=== PATIENT | female | born 1960 | race Two or more races ===

== ENCOUNTER 2016-09-01 06:58 | Observation (INO) ==
[2016-09-01 07:59] LABS: Basophils % 0.2 % (0.0-0.8); Hematocrit 40.4 VOL% (35.7-47.0); Hemoglobin 13.6 GM/DL (12.0-16.0); Immature Granulocytes % 0.2 %; Immature Granulocytes Absolute 0.02 #; Lymphocytes # 0.6 10*3/uL (1.4-4.0); Lymphocytes % 7.2 % (21.3-54.2); Mean Corpuscular HGB Conc 33.7 GM/DL (32-36); Mean Corpuscular Hemoglobin 29 PG (27-34); Mean Corpuscular Volume 86.5 FL (87-102); Mean Platelet Volume 10.3 FL (9.6-12.0); Monocytes # 0.2 10*3/uL (0.11-0.8); Monocytes % 2.7 % (1.7-12.7); Neutrophils # 7.7 10*3/uL (1.4-7.4); Neutrophils % 89.7 % (38.7-73.9); Platelet Count 198 10*3/uL (130-400); Red Blood Count 4.67 10*6/uL (3.8-5.5); Red Cell Distribution Width 12.2 % (9.3-17.3); White Blood Count 8.6 10*3/uL (4.5-13.71)
[2016-09-01 08:27] LABS: Lactic Acid 1.2 MMOL/L (0.4-2.0)
[2016-09-01 08:28] LABS: Albumin 4.3 G/DL (3.4-5.0); Bilirubin,Total 0.6 MG/DL (0.2-1.0); Calcium 8.9 MG/DL (8.5-10.1); Potassium 3.7 MMOL/L (3.5-5.1); Total Protein 7.7 G/DL (6.4-8.3)
--- NOTE | 2016-09-01 08:45 | XRay Report ---
XR chest 2V Indication: Febrile illness. Chest 2 views: Heart size and mediastinal contour are normal. There is diffuse mild parabronchial thickening present. No focal infiltrates are shown. Pleural spaces are clear. Bones are intact. Impression: Mild airways disease such as bronchitis or viral syndrome. No focal pneumonia. PROCEDURE INTERPRETED AT [facility] DEPARTMENT OF RADIOLOGY Final Report Signed by: Jr Rausch M.D.
[2016-09-01] MEDS ORDERED: ONDANSETRON 4 MG/2 ML VIAL IV STA (09:42)
[2016-09-01] MEDS ORDERED: HYDROmorphone 2 MG/1 ML VIAL IV STA (09:42)
[2016-09-01] MEDS ORDERED: HYDROmorphone 2 MG/1 ML VIAL ONE ×2 (09:44→15:08)
[2016-09-01] MEDS ORDERED: ONDANSETRON 4 MG/2 ML VIAL ONE (09:44)
--- NOTE | 2016-09-01 09:48 | Ultrasound Report ---
US gallbladder Indication: Right upper quadrant abdominal pain. ULTRASOUND ABDOMEN, limited Comparison: 12/19/2014 Findings: Liver: Unremarkable Gallbladder: Unremarkable. No stones, sludge or sonographic Logan's sign. Common bile duct: 6 mm Pancreas: Unremarkable Right kidney: 10.4 cm length. No mass, cyst, calcification or obstruction Impression: Negative ultrasound. PROCEDURE INTERPRETED AT [facility] DEPARTMENT OF RADIOLOGY Final Report Signed by: Jr Rausch M.D.
--- NOTE | 2016-09-01 11:00 | CT Report ---
CT abdomen pelvis w con Indication: Right lower quadrant abdominal pain. CT ABDOMEN AND PELVIS WITH CONTRAST DLP: 462 mGy*cm Comparison: Ultrasound obtained earlier today Technique: Axial CT images of the abdomen and pelvis were obtained with IV contrast; Omnipaque 350, 100 cc. Oral contrast was not administered. Abdomen: Borderline enlarged heart size. Coarsened interstitial markings of the lung bases primarily atelectasis. No infiltrates. Liver, gallbladder, spleen, pancreas, adrenal glands and left kidney are unremarkable. Hypodensity right kidney is present, likely a cyst, 22 mm diameter. No bowel obstruction. Pelvis: The appendix is enlarged, edematous, with adjacent fat stranding. No bowel obstruction. No evidence of perforation. Subcentimeter right lower quadrant mesenteric nodes noted. Urinary bladder, rectosigmoid colon, uterus and adnexal structures are unremarkable. Impression: Acute appendicitis. Right renal cyst. PROCEDURE INTERPRETED AT [facility] DEPARTMENT OF RADIOLOGY Final Report Signed by: Jr Rausch M.D.
[2016-09-01] MEDS ORDERED: AMPICILLIN/SULBACTAM 3,000 MG in SODIUM CHLORIDE 0.9% 100 ML IV STA (11:21)
[2016-09-01] MEDS ORDERED: AMPICILLIN/SULBACTAM 3,000 MG VIAL ONE (11:23)
--- NOTE | 2016-09-01 11:23 | Emergency Department Note ---
Curt Morse Jamie, am scribing for, and in the presence of, Diaz Leroy MD 07:32. Rad Morse Doug C, MD, personally performed the services described in this documentation, ascribed by Tra Elias in my presence, and it is both accurate and complete 836 . Arrival - Arrival Chief Complaint: Abdominal / Flank Pain Stated Complaint: food poisoning (stomach pain ) ED Nursing Triage Note: C/O ABDOMINAL PAIN WITH VOMITING. ONSET INGA 1900 LAST EVENING. PT STATES IT STARTED AFTER EATING CORNB[place] FROM THE [place] Mode of Arrival: Ambulatory Limitations: No Limitations Source: Patient, RN Notes Reviewed Time Seen by Provider: 09/01/16 07:30 - History of Present Illness HPI Narrative: Patient comes in today complaining of abdominal pain that started about 12 hours ago. Patient states the pain is in the epigastrium and seems to radiate into her right lower abdomen. She has had nausea vomiting with it and loss of appetite. Patient states she is not having any fever chills associated with this. She denies any urinary symptoms and states she has not had any bowel habit changes. Patient states she did have a similar episode one time before when she was on vacation the pain was brief and subsided spontaneously and she has not been trouble with it again until last night. She has not had any previous surgeries except eye surgery. Onset (ago): day(s) (1) Consistency: constant Severity: moderate Allergies/Adverse Reactions: Allergies Allergy/AdvReac Type Severity Reaction Status Date / Time No Known Allergies Allergy Unverified 12/07/14 15:58 Home Medications: Home Medications Medication Instructions Recorded Confirmed Type Solifenacin Succinate [Vesicare] 10 mg PO QAM 09/01/16 09/01/16 History Review of System - Review of System 12 point system: reviewed and no additional remarkable complaints except as stated - Review of System Constitutional: Absent: chills, diaphoresis, fever, weakness Eyes: Absent: vision change Respiratory: Absent: cough, respiratory distress Cardiovascular: Absent: chest pain Gastrointestinal: Present: abdominal pain, nausea, vomiting. Absent: diarrhea, constipation Musculoskeletal: Absent: joint swelling Skin: Absent: rash, change in color Neurological: Absent: headache, weakness, numbness, confusion Hematological/Lymphatic: Absent: easy bleeding, easy bruising Medical,Surgical,& Family Hx - Medical History Medical History: noncontributory Neurology: No history of: Seizures - Surgical History HEENT Surgeries: Surgical HX of: Eye Surgery - Family History Family History: Reports;: Family Diabetes, Family Heart Disease - Social History Smoking Status: Never smoker Frequency of Alcohol Use: None Type of Drug Use: None Exam Vital Signs: Vital Signs Temperature 97.5 F L 09/01/16 07:08 Pulse Rate 78 09/01/16 11:15 Respiratory Rate 16 09/01/16 11:15 Blood Pressure 123/64 09/01/16 11:15 O2 Sat by Pulse Oximetry 100 09/01/16 11:15 - General General appearance: alert, in no apparent distress - Head Head exam: Present: atraumatic, normocephalic, normal inspection - Eye Eye exam: Present: normal appearance, PERRL, EOMI - ENT ENT exam: Present: normal exam, normal oropharynx, mucous membranes moist - Neck Neck exam: Present: normal inspection, full ROM - Chest Chest inspection: Present: normal inspection, symmetric chest wall rise - Respiratory Respiratory exam: Present: normal lung sounds bilaterally - Cardiovascular Cardiovascular exam: Present: regular rate, normal rhythm, normal heart sounds - Abdominal Exam Abdominal exam: Present: soft, tenderness (Right upper and lower quadrant), normal bowel sounds. Absent: guarding, rebound - Extremities Exam Extremities exam: Present: normal inspection, full ROM - Neurological Exam Neurological exam: Present: alert, oriented X3, CN II-XII intact. Absent: motor sensory deficit - Psychiatric Psychiatric exam: Present: normal affect, normal mood - Skin Skin exam: Present: warm, dry, intact, normal color Course Course Narrative: Patient's clinical presentation, laboratory and radiographic findings were discussed with Dr. Jayden Bowman. He will see the patient emergency room and evaluate for surgical intervention. Results - Labs CBC & BMP: 09/01/16 07:41 09/01/16 07:41 Lab Results: I have reviewed the patients labs Labs: Laboratory Tests 09/01/16 09/01/16 07:41 07:41 MCV 86.5 L Neut % (Auto) 89.7 H Lymph % (Auto) 7.2 L Neut # (Auto) 7.7 H Lymph # (Auto) 0.6 L BUN/Creatinine Ratio 23.00 H Glucose 123 H ALT 67 H - Diagnostic Findings Procedure: Chest x-ray: report reviewed by me (Mild airways disease such as bronchitis or viral syndrome. No focal pneumonia.), CT Abdomen and Pelvis: report reviewed by me (Acute appendicitis) Disposition Case discussed with: patient Disposition: Still a Patient Condition: Stable Time of Disposition: 11:23
--- NOTE | 2016-09-01 12:17 | General Surg History&Physical ---
Assessment and Plan (1) Acute appendicitis Status: Acute Assessment and plan: The patient has acute CT proven appendicitis. I discussed medical management with the patient and I'll also discuss surgical options. She has already been on antibiotics for urinary tract infection for the past 2 weeks. She would like to proceed with operative intervention. I recommended a laparoscopic appendectomy to the patient. We did discuss the option of antibiotics and about 75% success rate but she would rather have the surgery. I think this is velez especially because she has already been on antibiotics for urinary tract infection. This occurred while she was on antibiotics. I discussed the risks, benefits, and alternatives of the operation with the patient, and the expected outcomes have been reviewed. The patient would like to proceed with the operation and we will do this now. She said the last time she ate or drank anything was last night and she promptly had vomiting afterwards and hasn't had anything since then. Current Visit: Yes History of Present Illness Chief complaint: abdominal pain History of present illness: Ms. Rainey is a 56 year old female with history of hyperlipidemia presenting to the ER for abdominal pain since yesterday. The pain begain in the mid- spigastrium and has radiated to the right lower quadrant. She had a left shift on her CBC and also had acute nonperforated appendicitis on her CT scan. Been treated for UTI over the past 2 weeks. She says she's had episodes of pain that been similar in the past. She has no prior abdominal surgical history. Home Medications Medication Instructions Recorded Confirmed Type Solifenacin Succinate [Vesicare] 10 mg PO QAM 09/01/16 09/01/16 History Allergies Allergy/AdvReac Type Severity Reaction Status Date / Time No Known Allergies Allergy Unverified 12/07/14 15:58 Medical,Surgical,& Family Hx - Medical History Neurology: No history of: Seizures - Surgical History HEENT Surgeries: Surgical HX of: Eye Surgery - Family History Family History: Reports;: Family Diabetes, Family Heart Disease - Social History Smoking Status: Never smoker Frequency of Alcohol Use: None Type of Drug Use: None Exam - Constitutional Vitals: Period Temp Pulse Resp BP Sys/Tolliver Pulse Ox Last 24 Hr 97.5 F 70-95 16-18 115-165/57-98 96-100 General appearance: normal weight, no acute distress - Head Head exam: Present: normal inspection, normocephalic - Eye Eye exam: Present: EOMI. Absent: scleral icterus Pupils: Present: SHAI - ENT ENT exam: Present: normal exam Mouth exam: Present: normal external inspection, normal voice - Neck Neck exam: Present: normal inspection, trachea midline - Respiratory Respiratory exam: Present: clear to auscultation bilaterally. Absent: accessory muscle use, chest wall tenderness - Cardiovascular Cardiovascular exam: Present: RRR. Absent: systolic murmur, tachycardia - GI/Abdominal GI/Abdominal exam: Present: normal bowel sounds, tenderness (right lower quadrant tenderness without diffuse peritonitis), soft. Absent: distended - Extremities Exam Extremities exam: Present: normal inspection - Back Exam Back exam: Present: normal inspection - Neurological Exam Neurological exam: Present: alert, oriented X3 Speech: Present: normal - Skin Skin exam: Present: normal color, warm - Constitutional Constitutional: Present: as per HPI - EENT Nose, mouth and throat: Present: as per HPI - Cardiovascular Cardiovascular: Present: as per HPI - Respiratory Respiratory: Present: as per HPI - Gastrointestinal Gastrointestinal: Present: as per HPI - Genitourinary Genitourinary: Present: as per HPI - Musculoskeletal Musculoskeletal: Present: as per HPI - Neurological Neurological: Present: as per HPI - Endocrine Endocrine: Present: as per HPI Hematologic/Lymphatic: Present: as per HPI Results - Labs CBC & BMP: 09/01/16 07:41 09/01/16 07:41 - Diagnostic Findings Procedure: CT Abdomen and Pelvis: image reviewed by me, report reviewed by me
[2016-09-01] MEDS ORDERED: FAMOTIDINE 20 MG TABLET PO ONE (12:32)
[2016-09-01] MEDS ORDERED: BUPIVACAINE MPF 0.25% /EPI 30 ML VIAL ONE (12:54)
[2016-09-01] MEDS ORDERED: TISSUE ADHESIVE 1 EACH APPLICATOR TOP ONE (12:54)
[2016-09-01] MEDS ORDERED: LIDOCAINE 1%/EPI INJ 20 ML VIAL ONE (12:54)
[2016-09-01] MEDS ORDERED: ONDANSETRON 4 MG/2 ML VIAL IV PRN ×2 (13:46→16:01)
[2016-09-01] MEDS ORDERED: HYDROmorphone 2 MG/1 ML VIAL IV PRN ×2 (13:46→16:01)
[2016-09-01] MEDS: LACTATED RINGERS 1,000 ML IV SCH ×2 (13:50→18:30)
--- NOTE | 2016-09-01 14:55 | Operative Note ---
Date of procedure: 09/01/16 Pre-op diagnosis: acute appendicitis Post-op diagnosis: same Procedure: Preoperative diagnosis Acute appendicitis Postoperative diagnosis Same Procedures performed Laparoscopic appendectomy Findings Acute nonperforated appendicitis Complications None apparent Specimen Appendix Blood loss 5 mL Anesthesia GETA Indications Acute appendicitis CT proven Description of procedure The patient was taken to the operating room and transferred to the operating table in the supine position. Pressure points were padded and SCDs placed on bilateral lower extremities. General endotracheal anesthesia was administered. The abdomen was prepped with chlorhexidine and draped sterilely after Amin catheter was placed with clear urine output. Timeout was called. Preoperative antibiotics were administered. The abdomen was entered in the paramedian location in the right supraumbilical location with a Veress needle. A 12 mm skin incision was made after local anesthetic was administered in this location and penetrating towel clips were used to grasp the abdominal wall skin. The Veress needle was used to enter the peritoneal cavity confirmed by double click technique. Aspiration was negative. Saline drop test confirmed intraperitoneal location. The abdomen was insufflated to 15 mmHg with an initial insufflation pressure of 2 mmHg. The Veress needle was removed and a 12 mm trocar was placed. Laparoscope was inserted and diagnostic laparoscopy was performed. There was no evidence of air is needle or trocar injury. There was inflammation in the right lower quadrant but there is no pus or evidence of perforation. There was focal peritonitis in this location. Under direct visualization, and after local anesthetic was administered, a suprapubic 5 mm trocar and a left lower quadrant 5 mm trocar placed after local anesthetic was administered. The appendix was then visualized once the small bowel was swept out of the pelvis. It was acutely inflamed and injected with erythema but there is no perforation. The appendix was grasped and the appendiceal mesentery was dissected until a window was made in the appendiceal mesentery. The stapler was then used to transect the base of the appendix. The ELINOR stapler was used. The appendiceal mesentery was then divided with a ELINOR stapler using a vascular load. There was some bleeding from the staple line at the appendiceal artery controlled with spot electrocautery. The appendix was placed in a retrieval bag and removed through the 12 mm trocar. There was no further bleeding from the staple line. The trochars were removed after the CO2 was released from the abdomen. The skin incisions were closed with 4-0 Monocryl sterile skin glue. The patient was awakened from anesthesia after Amin catheter was removed and transferred recovery. Postoperative plan Discharge home tomorrow stop antibiotics Anesthesia: MARITZA, local Surgeon / Physician: Jayden Bowman Estimated blood loss: minimal Specimens: other (appendix) Condition: stable Disposition: PACU Results - Labs CBC & BMP: 09/01/16 07:41 09/01/16 07:41 Discharge Plan - Discharge Data Disposition: Disch To Home/Self Care Condition at Discharge: Stable Discharge Diet: advance to your usual diet Activity: no lifting Hygiene: may shower Weight Bearing at Discharge: weight bear as tolerated Driving: not for (24 hours and after off of narcotic pain medications) Wound / Dressing Care Instructions: It is okay to shower. Do not submerge incisions under water. - Discharge Medications New HYDROcodone/ACETAMIN 7.5-325 [[place] 7.5-325] 1 tablet PO Q4H PRN #30 tablet PRN Reason: Pain Continue Solifenacin Succinate [Vesicare] 10 mg PO QAM - Follow Up or Referral Follow Up: Jayden Bowman MD [Physician] - 2 Weeks - Forms/Instructions
--- NOTE | 2016-09-01 15:06 | Anesthesia ---
Anesthesia Post OP - Post Ansesthetic Evaluation Patient seen in post op: Yes Resp: within normal limits CV: within normal limits Mental: within normal limits Temp: within normal limits [id number]: within normal limits Nausea and Vomiting: within normal limits Pain: within normal limits
[2016-09-01] MEDS ORDERED: MIDAZOLAM 2 MG/2 ML VIAL ONE (15:08)
[2016-09-01] MEDS ORDERED: fentaNYL 100 MCG/2 ML VIAL ONE (15:08)
[2016-09-01] MEDS ORDERED: SEVOFLURANE 1 UNIT/15 MINUTE INH ONE (15:08)
[2016-09-01] MEDS ORDERED: PROMETHAZINE 25 MG/1 ML VIAL IM PRN (16:01)
[2016-09-01] MEDS: KETOROLAC 10 MG TABLET PO SCH ×2 (18:58→21:46)
[2016-09-02] MEDS: KETOROLAC 10 MG TABLET PO SCH ×2 (03:00→09:26)
[2016-09-02] MEDS: LACTATED RINGERS 1,000 ML IV SCH ×3 (03:02→09:09)
[2016-09-02] MEDS ORDERED: ENOXAPARIN 40 MG/0.4 ML SYRINGE SUBCUT SCH (08:51)
[2016-09-02] MEDS ORDERED: SOLIFENACIN 5 MG TABLET PO SCH (09:00)
--- NOTE | 2016-09-02 10:09 | Discharge Summary ---
Hospital Course - Hospital Course Hospital Course: 56-year-old female admitted by Dr. Bowman on 09/01/2016 with acute nonperforated appendicitis. She was taken to the operating room for a laparoscopic appendectomy. She is doing great postoperatively. She is up ambulating and she is tolerating a diet without problems. She will be discharged home with a 1 week follow-up with Dr. Bowman. Discharge instructions were given. - Time spent with patient Time with patient DS: Less than 30 minutes Specialty Discharge - Follow Up or Referrals Follow up with: Jayden Bowman MD [Physician] - 2 Weeks Discharge Plan - Discharge Data Disposition: Disch To Home/Self Care Condition at Discharge: Stable Discharge Diet: advance to your usual diet Activity: increase activity as tolerated, no lifting Hygiene: may shower Driving: other (no driving if taking pain pills) Contact your physician if you experience:: fever over 101, Nausea/Vomiting Wound / Dressing Care Instructions: ok to shower daily w mild soap and water, pat dry. ok to leave open to the air or cover prn w bandaids. - Discharge Medications New HYDROcodone/ACETAMIN 7.5-325 [[place] 7.5-325] 1 tablet PO Q4H PRN #30 tablet PRN Reason: Pain HYDROcodone/ACETAMIN 7.5-325 [[place] 7.5-325] 1 tablet PO Q4H PRN #30 tablet PRN Reason: Pain Moderate (4-7) Continue Solifenacin Succinate [Vesicare] 10 mg PO QAM - Follow Up or Referral Follow Up: Jayden Bowman MD [Physician] - 2 Weeks - Forms/Instructions Exam - Constitutional Vitals: Period Temp Pulse Resp BP Sys/Tolliver Pulse Ox Last 24 Hr 97.6 F-98.9 F 60-76 16-20 95-124/45-67 95-100 DS: Provider Date of admission: 09/01/16 12:14 Primary care physician: . No PCP Attending physician on admission: Jayden Bowman MD Consults: 09/01/16 16:10 Consult to Pharmacy [CONS] Routine Reason for Pharmacy Consult: Adjust Meds Renal Funct Discharging clinician: REBECCA Benitez Expected date of discharge: 09/02/16
[2016-09-02 13:12] VITALS: BP 124/72
[2016-09-02] MEDS ORDERED: ROCURONIUM 100 MG/10 ML VIAL IV ONE (13:49)
[2016-09-02] MEDS ORDERED: ONDANSETRON 4 MG/2 ML VIAL ONE (13:49)
[2016-09-02] MEDS ORDERED: KETOROLAC 30 MG/1 ML VIAL ONE (13:49)
[2016-09-02] MEDS ORDERED: DEXAMETHASONE 10 MG/1 ML VIAL ONE (13:49)
[2016-09-02] MEDS ORDERED: LIDOCAINE 2% 5 ML VIAL ONE (13:49)
[2016-09-02] MEDS ORDERED: PROPOFOL 200 MG/20 ML VIAL IV ONE (13:49)
--- NOTE | 2016-09-03 11:43 | Pathology Report from [facility] ---
ACCESSION # : [id number] PATIENT NAME : Richard Price ORDERING DR : Jayden Bowman MD CLINICAL HX: Acute appendicitis POST-OP DX: Same SPECIMEN INFO: Appendix GROSS DESCRIPTION: The specimen is received in formalin labeled with the patient 's name and consists of an appendix and attached mesoappendix. The appendix measures 5.0 x 1.0 cm. The serosa is hyperemic, cano-ye. Cut surfaces reveal a slightly dilated lumen. The lumen contains mucoid material. There is an extension at the distal end to the fat. No fecaliths or perforations identified. Emergency Preparedness Manager sections submitted in cassettes A and B. DIAGNOSIS FOR RICHARD PRICE: APPENDIX: Acute appendicitis. SERVICE DATE: 09/02/2016 REPORT DATE: 09/03/2016 PATHOLOGIST: Maeve Morris III, M.D. MTDD
== END 2016-09-02 14:25 | disposition home or self-care (01) ==
LOC: N.ED 06:58 → N.EDINP 06:58 → N.3E 12:27
PROVIDERS: ADMIT Surgery; ATTEND Surgery